=== PATIENT | male | born 2005 | race Hispanic/Latino ===

== ENCOUNTER 2023-05-13 20:25 | Emergency (ER) | payer OTHER ==
[~2023-05-13] VITALS: Ht 182.9 cm; Wt 88.0 kg
[2023-05-13 23:51] VITALS: BP 150/85; PULSE 81; RESP 18; O2SAT 99
[2023-05-13] MEDS ORDERED: CYCL-309 PO (23:52)
[2023-05-13] MEDS ORDERED: NAPR-1180 PO (23:52)
== END 2023-05-14 00:05 | disposition home or self-care (01) ==
LOC: EDH 20:25
DX: S16.1XXA Strain of muscle, fascia and tendon at neck level, initial encounter (principal); J45.909 Unspecified asthma, uncomplicated; V89.2XXA Person injured in unspecified motor-vehicle accident, traffic, initial encounter; Y92.89 Other specified places as the place of occurrence of the external cause; Y99.8 Other external cause status
CPT/HCPCS: 72040